=== PATIENT | female | born 1985 | race Caucasian/White ===

== ENCOUNTER 2018-06-21 22:50 | Observation (INO) | payer BC, OTHER ==
--- NOTE | 2018-06-22 00:11 | PDOC ---
History of Present Illness - General Chief Complaint: Palpitations Stated Complaint: CHEST PAIN Time Seen by Provider: 06/21/18 23:52 - History of Present Illness Initial Comments: 06/22/18 00:04 33 yo , at 35 wga at LMP (11/08), and no significant pmh who p/w palpitations. Patient reports acute onset of palpitations, lightheadedness, SOB , and elevated HR~200 beginning at 1000 AM today. Also endorses, intermittent non pleuritic chest tightness, beginning at 1000 AM. Palpitations occurring every 20-30 minutes, with no identifiable triggers or alleviators. + Nausea without vomiting. Denies h/o similar symptoms. No complications through .Patient arrives from [place]. Denies recent travels, immobilization, trauma/surgery, or flight. Patient denies BARRIENTOS, tinnitus, vision change, F/C, cough, PND, orthopnea, leg pain/swelling, wheezing, urinary complaints, hematuria, abdominal pain, BPR, diarrhea, constipation,vaginal bleeding/discharge/burning/itching, weakness, sensory changes. PMHx: as noted above. Denies h/o DVT/PE, or coagulopathy. ROS: as noted SHx: Denies Etoh,tobacco, IVDA Allergies:NKDA Past History - Past Medical History Allergies/Adverse Reactions: Allergies Allergy/AdvReac Type Severity Reaction Status Date / Time No Known Allergies Allergy Verified 06/21/18 22:56 COPD: No - Suicide/Smoking/Psychosocial Hx Smoking History: Never smoked Review of Systems - Review of Systems Comments:: 06/22/18 00:16 GENERAL/CONSTITUTIONAL: No fever or chills. No weakness. HEAD, EYES, EARS, NOSE AND THROAT: No change in vision. No ear pain or discharge. No sore throat. CARDIOVASCULAR: No shortness of breath RESPIRATORY: +Chest tightness and palpitations. No cough, wheezing, or hemoptysis. GASTROINTESTINAL: No nausea, vomiting, diarrhea or constipation. GENITOURINARY: No dysuria, frequency, or change in urination. MUSCULOSKELETAL: No joint or muscle swelling or pain. No neck or back pain. SKIN: No rash NEUROLOGIC: No headache, vertigo, loss of consciousness, or change in strength/ sensation. ENDOCRINE: No increased thirst. No abnormal weight change HEMATOLOGIC/LYMPHATIC: No anemia, easy bleeding, or history of blood clots. ALLERGIC/IMMUNOLOGIC: No hives or skin allergy. *Physical Exam - Vital Signs Last Vital Signs Temp Pulse Resp BP Pulse Ox 98.1 F 72 18 106/62 97 06/22/18 05:10 06/22/18 05:10 06/22/18 05:10 06/22/18 05:10 06/22/18 05:10 - Physical Exam Comments: 06/22/18 03:16 GENERAL: Awake, alert, and fully oriented, in no acute distress HEAD: No signs of trauma, normocephalic, atraumatic EYES: PERRLA, EOMI, sclera anicteric, conjunctiva clear ENT: Hearing grossly normal, nares patent, oropharynx clear without exudates. Moist mucosa NECK: Normal ROM, supple, no lymphadenopathy, JVD, or masses LUNGS: No distress, speaks full sentences, clear to auscultation bilaterally HEART: Irregular rate . Normal rhythm, normal S1 and S2, no murmurs, rubs or gallops, peripheral pulses normal and equal bilaterally. ABDOMEN: Soft, nontender, normoactive bowel sounds. No guarding, no rebound. No masses EXTREMITIES : Normal inspection, Normal range of motion, no edema. No clubbing or cyanosis. NEUROLOGICAL: Cranial nerves II through XII grossly intact. Normal speech, normal gait, no focal sensorimotor deficits. SKIN: Warm, Dry, normal turgor, no rashes or lesions noted ED Treatment Course - LABORATORY CBC & Chemistry Diagram: 06/22/18 02:07 06/22/18 02:07 - ADDITIONAL ORDERS Additional order review: Laboratory Results 06/22/18 06/22/18 06/22/18 02:07 02:07 02:07 PT with INR INR Sodium 139 Potassium 3.6 Chloride 109 H Carbon Dioxide 21 Anion Gap 9 BUN 10 Creatinine 0.6 Creat Clearance w eGFR > 60 Random Glucose 92 Calcium 8.7 Total Bilirubin 0.2 AST 21 ALT 22 Alkaline Phosphatase 141 H Creatine Kinase Troponin I Total Protein 6.4 Albumin 2.9 L TSH 2.21 Beta HCG, Quant Blood Type O POSITIVE Antibody Screen Negative 06/22/18 06/22/18 02:07 02:07 PT with INR 10.90 INR 0.92 Sodium Potassium Chloride Carbon Dioxide Anion Gap BUN Creatinine Creat Clearance w eGFR Random Glucose Calcium Total Bilirubin AST ALT Alkaline Phosphatase Creatine Kinase 126 Troponin I 0.18 H Total Protein Albumin TSH Beta HCG, Quant 41606.2 Blood Type Antibody Screen 06/22/18 02:07 RBC 3.74 MCV 92.3 MCHC 34.1 RDW 14.3 MPV 7.0 L Neutrophils % 78.7 Lymphocytes % 13.7 Monocytes % 6.4 Eosinophils % 0.8 Basophils % 0.4 - RADIOLOGY Radiology Studies Ordered: Category Date Time Status DUPLEX VASCUL US-2LEGS [US] Stat Ultrasound 06/22/18 00:41 Taken - Medications Given in the ED: ED Medications Discontinued Medications Generic Name Dose Route Start Last Admin Trade Name Freq PRN Reason Stop Dose Admin Sodium Chloride 1,000 mls @ 1,000 mls/hr 06/22/18 00:52 06/22/18 00:55 Normal Saline - IV 06/22/18 01:51 1,000 mls/hr ASDIR STA Administration Medical Decision Making - Medical Decision Making 06/22/18 00:11 33 yo , at 35 wga at LMP (11/08), and h/o psoriasis who p/w palpitations, lightheadedness, chest tightness. Patient arrives from LND. HR 120, vitals otherwise wnl, AF. Possible PE. Will assess for cardiac dysarrythmia, electrolyte abnml, metabolic derangements, acid base disturbances, infection.Denies vaginal bleeding, abdominal pain, F/C. Low suspicion threatened , placenta previa/abruptio. Ed Course: CBC, CMP, PT/INR,CARDIAC Pr.,D-DIMER EKG UA, HCG, URINE CX. DUPLEX VASC BL LE NS 06/22/18 00:58 EKG: Sinus Tachycardia, HR 120 with absent BREANNA, STD, or TWI. Normal interval duration and axis. 06/22/18 04:08 HC 06/22/18 04:09 CBC: Unremarkable Trop: 0.18 06/22/18 04:19 BL LE DUPLEX VASC : NEG CTAP: Neg for PE 06/22/18 07:39 [facility] Hospitalist does not accept patient over 20 wga. Called Procedure Manager senior oracle applications developer and left message ([phone]). Plan to admit for obs. 06/22/18 07:54 Patient signed out to day team. *DC/Admit/Observation/Transfer Diagnosis at time of Disposition: Palpitations, Elevated troponin, Tachycardia - Discharge Dispostion Decision to Admit order: Yes Decision to Admit order Date/Time: Decision to Admit Order Category Date Time Status Decision to Admit to Hospital Routine Admission 06/22/18 07:30 Ordered - Referrals - Patient Instructions - Post Discharge Activity
[2018-06-22] MEDS ORDERED: SODIUM CHLORIDE 1,000 ML IV STA (00:52)
--- NOTE | 2018-06-22 01:44 | PDOC ---
Attending Attestation - Resident Resident Name: Lanre Santanason - ED Attending Attestation I have performed the following: I have examined & evaluated the patient, The case was reviewed & discussed with the resident, I agree w/resident's findings & plan, Exceptions are as noted - HPI HPI: 33 yo currently 35 WGA with uncomplicated presents with abrupt onset palpitations, heart racing, SOB starting this evening. She states she was in her usual state of health leading up to it. She has been drinking water all day, eating normally. Denies any leg swelling, however, has been wearing compression stockings during her . - Physicial Exam PE: GENERAL: Awake, alert, and fully oriented, in no acute distress HEAD: No signs of trauma EYES: PERRLA, EOMI, sclera anicteric, conjunctiva clear ENT: Auricles normal inspection, hearing grossly normal, nares patent, oropharynx clear without exudates. Moist mucosa NECK: Normal ROM, supple, no lymphadenopathy, JVD, or masses LUNGS: Breath sounds equal, clear to auscultation bilaterally. No wheezes, and no crackles HEART: Tachycardic with regular rhythm, normal S1 and S2, no murmurs, rubs or gallops ABDOMEN: Soft, nontender, normoactive bowel sounds. No guarding, no rebound. No masses EXTREMITIES: Normal range of motion, no edema. No clubbing or cyanosis. No cords, erythema, or tenderness NEUROLOGICAL: Cranial nerves II through XII grossly intact. Normal speech, normal gait SKIN: Warm, Dry, normal turgor, no rashes or lesions noted. - Medical Decision Making Pt with palpitations, SOB, lower chest tightness. Will obtain BLE dopplers, labs including TSH. If all wnl, will obtain CTA to r/o PE. 06/22/18 04:56 Risks/benefits of CTA discussed with patient. Relatively low risk to fetus at this point, as she is 35 WGA. However, with her symptoms and elevated troponin, concern is high for PE. Patient agrees to CTA. 06/22/18 06:41 PE study with suboptimal contrast bolus, however, no large PEs identified. Will plan for observation in hospital based on tachycardia, elevated trop.
[2018-06-22 02:40] LABS: BASO % 0.4 % (0-2.0); EOS % 0.8 % (0-4.5); HEMATOCRIT 34.5 % (32.4-45.2); HEMOGLOBIN 11.7 GM/dL (10.7-15.3); LYMPH % 13.7 % (8-40); MCH 31.4 pg (25.7-33.7); MCHC 34.1 g/dl (32.0-36.0); MEAN CELL VOLUME 92.3 fl (80-96); MONO % 6.4 % (3.8-10.2); NEUT % 78.7 % (42.8-82.8); PLATELET COUNT 262 K/MM3 (134-434); RBC 3.74 M/mm3 (3.60-5.2); RDW 14.3 % (11.6-15.6)
[2018-06-22 02:52] LABS: INR 0.92 (0.83-1.09); PROTHROMBIN TIME (PATIENT) 10.9 SEC (9.7-13.0)
[2018-06-22 03:33] LABS: ALBUMIN 2.9 g/dl (3.4-5.0); ALK PHOS 141 U/L (45-117); ANION GAP 9 MMOL/L (8-16); BILIRUBIN,TOTAL 0.2 mg/dL (0.2-1); BLOOD UREA NITROGEN 10 mg/dL (7-18); CALCIUM 8.7 mg/dL (8.5-10.1); CHLORIDE 109 mmol/L (98-107); CO2 21 mmol/L (21-32); CREATININE 0.6 mg/dL (0.55-1.3); GLUCOSE,RANDOM 92 mg/dL (74-106); POTASSIUM 3.6 mmol/L (3.5-5.1); SGOT/AST 21 U/L (15-37); SGPT/ALT 22 U/L (13-61); SODIUM 139 mmol/L (136-145); TOT PROT 6.4 g/dl (6.4-8.2)
[2018-06-22 06:08] LABS: ACANTHOCYTES 0; ANISOCYTOSIS 0; HELMET CELLS 0; HOWELL-JOLLY BODIES 0; MACROCYTOSIS 0; OVALOCYTE 0; PLATELET ESTIMATE NORMAL; ROULEAU 0; SICKELED CELLS 0; TARGET CELLS 0; TEAR DROP CELLS 0; TOXIC GRANULATION 0
--- NOTE | 2018-06-22 10:42 | EKG ---
Test Reason : Blood Pressure : / mmHG Vent. Rate : 120 BPM Atrial Rate : 120 BPM P-R Int : 118 ms QRS Dur : 082 ms QT Int : 320 ms P-R-T Axes : 043 046 030 degrees QTc Int : 452 ms SINUS TACHYCARDIA OTHERWISE NORMAL ECG NO PREVIOUS ECGS AVAILABLE Confirmed by Ky Martin MD ([id number]) on 06/22/2018 10:42:15 AM Referred By: Confirmed By:Ky Martin MD
--- NOTE | 2018-06-22 12:33 | CON.CARD ---
Consult Consult Specialty:: cardiology Reason for Consultation:: palpitations ("HR > 200 bpm); lightheaded - History of Present Illness Chief Complaint: Pt A&Ox3; asymptomatic presently. History of Present Illness: 33 yo woman with PMHx , at 35 wga at LMP (11/08), and no significant pmh who presents with acute onset of palpitations, lightheadedness, SOB, and elevated HR~200 bpm, by her own count, beginning at 1000 AM today. Also endorses , intermittent non pleuritic chest tightness, beginning at 1000 AM. Palpitations occurring every 20-30 minutes, with no identifiable triggers or alleviators. + Nausea without vomiting. Denies h/o similar symptoms. No complications through .Patient arrives from [facility]. Denies recent travels , immobilization, trauma/surgery, or flight. She denies anxiety/panic. Pt works as an RN at [employer]. She does no formal exercise, but throughout the summer was [place]. No hx chest pain or dyspnea with exertion. One syncopal episode early in which occurred while in a hot and humid setting (and no palpitations). Denies excessive caffeine intake. - History Source History Provided By: Patient, Family Member, Medical Record Limitations to Obtaining History: No Limitations - Past Medical History ...: Yes - Past Surgical History Past Surgical History: Yes: None - Smoking History Smoking history: Never smoked - Social History Usual Living Arrangement: With Spouse Home Medications - Allergies Allergies/Adverse Reactions: Allergies Allergy/AdvReac Type Severity Reaction Status Date / Time No Known Allergies Allergy Verified 06/21/18 22:56 - Home Medications Home Medications: Ambulatory Orders NK [No Known Home Medication] 06/22/18 Family Disease History - Family Disease History Family Disease History: Heart Disease: Grandparent ([place] in his ?50s) Review of Systems - Review of Systems Constitutional: reports: No Symptoms Eyes: reports: No Symptoms, Recent Change in Vision Neck: reports: No Symptoms Cardiovascular: reports: Palpitations Vital Signs: Vital Signs Temperature 98.1 F 06/22/18 10:30 Pulse Rate 107 H 06/22/18 10:30 Respiratory Rate 16 06/22/18 10:30 Blood Pressure 126/66 06/22/18 10:30 O2 Sat by Pulse Oximetry (%) 98 06/22/18 10:30 Constitutional: Yes: Calm Eyes: Yes: WNL HENT: Yes: WNL Neck: Yes: WNL Respiratory: Yes: WNL Gastrointestinal: Yes: WNL Renal/: No: Anuria Cardiovascular: Yes: Regular Rate and Rhythm JVD: No Carotid Bruit: No PMI: Non-Displaced Heart Sounds: Yes: S1, S2 Murmur: Yes: Systolic Murmur, Grade 1 Musculoskeletal: Yes: WNL Extremities: Yes: WNL Edema: No Peripheral Pulses WNL: Yes Integumentary: Yes: WNL Neurological: Yes: WNL Psychiatric: Yes: WNL, Alert, Oriented - Other Data Labs, Other Data: CBC, BMP 06/22/18 02:07 06/22/18 02:07 INR, PTT INR 0.92 (0.83-1.09) 06/22/18 02:07 Troponin, BNP 06/22/18 06/22/18 02:07 08:36 Troponin I 0.18 H 0.08 H Troponin, BNP 06/22/18 06/22/18 02:07 08:36 Troponin I 0.18 H 0.08 H Abnormal Lab Results 06/22/18 06/22/18 06/22/18 02:07 02:07 02:07 MPV 7.0 L D-Dimer Chloride 109 H Alkaline Phosphatase 141 H Troponin I 0.18 H Albumin 2.9 L 06/22/18 06/22/18 08:36 09:44 MPV D-Dimer 2161 H Chloride Alkaline Phosphatase Troponin I 0.08 H Albumin Imaging - Results Ultrasound: Pending (ECHO) EKG: Image Reviewed (sinus tachycarida; otherwise, normal EKG) Problem List - Problems (1) Elevated troponin Assessment/Plan: TNI 0.18-->0.08 six hours later; CK WNL. Likely secondary to sustained episodes of tachycardia. Code(s): R74.8 - ABNORMAL LEVELS OF OTHER SERUM ENZYMES (2) Palpitations Code(s): R00.2 - PALPITATIONS (3) Tachycardia Assessment/Plan: The palpitations and tachycardia described are most likely due to PSVT. Hx single episode of syncope early in . F/u ECHO for LVEF, chamber sizes. Telemetry. Keep electrolytes WNL TSH WNL CTA negative for PE. Confer with Ob-sewer hand for the safest AV conduction shayy to use (metoprolol would be preferred, though propanolol, diltiazem, or digoxin would be other considerations). Pt is at late stage of . No objection to transfer to hospital center where all methods of rapid reaction for both mother and baby in event of further arrhythmias are available. An alternative, if medication is felt too risky, would be to teach pt maneuvers to break SVT, e.gl carotid artery massage (avoid traditional Valsalva maneuver). Conferred with rivet hammer machine operator, Dr. Rodolfo Ashby. Pt may be followed up with him via transfer to [facility], or once discharged, as outpatient for loop recorder monitoring. Code(s): R00.0 - TACHYCARDIA, UNSPECIFIED
--- NOTE | 2018-06-22 12:33 | HP ---
CHIEF COMPLAINT: PCP:Not on Staff STEWARDESS SUPERVISOR:[employer] HISTORY OF PRESENT ILLNESS: 33F with PMH of psoriasis presents to the ER with a chief complaint of palpitations. The patient is a nurse at [employer]. She states she was in her usual state of health until around 2130 last night. She states she all of a sudden felt some kind of "landin" come upon her and then she got diaphoretic, nauseated, short of breath, and then started having palpitations chest tightness, and pressure. She states she was able to feel and hear her heart beating in her ears and head. She states she took her pulse rate and it was around 200. The episode lasted for a few minutes. Upon arrival to the ER her HR was in the 130s-140s but has since been around 90-100 BPM. She denies vomiting fever chills chest pain urinary of GI symptoms. She denies lower extremity edema pain or cramping and wears compression stockings. She endorses a few months ago, in her first trimester, she had what she describes as a pre- syncopal event. She was on the subway platform waiting for the subway for a long while and started to get hot. Everything got "hazy" and she felt like she was going to pass out but she didn't. She doesn't remember if she went into an air conditioned car or what happened after that. She denies substance abuse. She denies this happening before. She denies a family history of arrhythmias. EKG done in the ER shows sinus tachycardia. Troponins trended x2 so far which showed 0.18 then 0.08. She had an elevated D-dimer and a CTA was negative for PE. She also had US duplex and was negative for DVT. Recent Travel:Denies PAST MEDICAL HISTORY:psoriasis PAST SURGICAL HISTORY:Denies Social History: Smoking:Denies Alcohol:Denies Drugs: Denies Family History:grabdfather of [place] in 50s grandfather had stroke Allergies No Known Allergies Allergy (Verified 06/21/18 22:56) HOME MEDICATIONS: Home Medications Medication Instructions Recorded NK [No Known Home Medication] 06/22/18 REVIEW OF SYSTEMS CONSTITUTIONAL: Absent: fever, chills, diaphoresis, generalized weakness, malaise, loss of appetite, weight change HEENT: Absent: rhinorrhea, nasal congestion, throat pain, throat swelling, difficulty swallowing, mouth swelling, ear pain, eye pain, visual changes CARDIOVASCULAR: Absent: chest pain, syncope, lightheadedness, peripheral edema Present: palpitations, irregular heart rate, chest tightness, chest pressure RESPIRATORY: Absent: cough, dyspnea with exertion, orthopnea, wheezing, stridor, hemoptysis Present: shortness of breath GASTROINTESTINAL: Absent: abdominal pain, abdominal distension, vomiting, diarrhea, constipation, melena, hematochezia Present:shortness of breath GENITOURINARY: Absent: dysuria, frequency, urgency, hesitancy, hematuria, flank pain, genital pain MUSCULOSKELETAL: Absent: myalgia, arthralgia, joint swelling, back pain, neck pain SKIN: Absent: rash, itching, pallor HEMATOLOGIC/IMMUNOLOGIC: Absent: easy bleeding, easy bruising, lymphadenopathy, frequent infections ENDOCRINE: Absent: unexplained weight gain, unexplained weight loss, heat intolerance, cold intolerance NEUROLOGIC: Absent: headache, focal weakness or paresthesias, dizziness, unsteady gait, seizure, mental status changes, bladder or bowel incontinence PSYCHIATRIC: Absent: anxiety, depression, suicidal or homicidal ideation, hallucinations. PHYSICAL EXAMINATION Vital Signs - 24 hr 06/21/18 06/22/18 06/22/18 22:52 00:01 05:10 Temperature 98 F 98.8 F 98.1 F Pulse Rate 120 H Pulse Rate [ 135 H Left Brachial] Pulse Rate [ 72 Left Radial] Respiratory 18 18 18 Rate Blood Pressure 110/66 Blood Pressure 106/62 [Left Arm] Blood Pressure 106/69 [Left Upper Arm ] O2 Sat by Pulse 97 97 Oximetry (%) 06/22/18 10:30 Temperature 98.1 F Pulse Rate Pulse Rate [ Left Brachial] Pulse Rate [ 107 H Left Radial] Respiratory 16 Rate Blood Pressure Blood Pressure 126/66 [Left Arm] Blood Pressure [Left Upper Arm ] O2 Sat by Pulse 98 Oximetry (%) GENERAL: Awake, alert, and fully oriented, in no acute distress. HEAD: Normal with no signs of trauma. EYES: Pupils equal, round and reactive to light, extraocular movements intact EARS, NOSE, THROAT: Moist mucous membranes. NECK: Normal range of motion, supple without JVD LUNGS: Breath sounds equal, clear to auscultation bilaterally. No wheezes, and no crackles. No accessory muscle use. HEART: Regular rate and rhythm, normal S1 and S2 without murmur, rub or gallop. ABDOMEN: Soft, nontender, not distended , gravid uterus MUSCULOSKELETAL: Normal range of motion at all joints. No bony deformities or tenderness. No CVA tenderness. UPPER EXTREMITIES: 2+ pulses, warm, well-perfused. No cyanosis. No clubbing. No peripheral edema. LOWER EXTREMITIES: 2+ pulses, warm, well-perfused. No calf tenderness. No peripheral edema. NEUROLOGICAL: Cranial nerves II-XII intact. Normal speech. Normal gait. PSYCHIATRIC: Cooperative. Good eye contact. Appropriate mood and affect. SKIN: Warm, dry, normal turgor, psoriasis on scalp, forehead, arms. Laboratory Results - last 24 hr 06/22/18 06/22/18 06/22/18 02:07 02:07 02:07 WBC 10.0 RBC 3.74 Hgb 11.7 Hct 34.5 MCV 92.3 MCH 31.4 MCHC 34.1 RDW 14.3 Plt Count 262 MPV 7.0 L Absolute Neuts (auto) 7.8 Neutrophils % 78.7 Neutrophils % (Manual) 71.6 Band Neutrophils % 5.3 Lymphocytes % 13.7 Lymphocytes % (Manual) 14.7 Monocytes % 6.4 Monocytes % (Manual) 5 Eosinophils % 0.8 Eosinophils % (Manual) 3.1 Basophils % 0.4 Basophils % (Manual) 0.0 Myelocytes % (Man) 0 Promyelocytes % (Man) 0 Blast Cells % (Manual) 0 Nucleated RBC % 0 Metamyelocytes 0 Hypochromia 0 Toxic Granulation 0 Dohle Bodies 0 Platelet Estimate Normal Polychromasia 0 Poikilocytosis 0 Basophilic Stippling 0 Anisocytosis 0 Microcytosis 0 Macrocytosis 0 Spherocytes 0 Sickle Cells 0 Target Cells 0 Tear Drop Cells 0 Ovalocytes 0 Stomatocytes 0 Helmet Cells 0 [place] Bodies 0 [place] Rings 0 Epi Cells 0 Acanthocytes (Spur) 0 Rouleaux 0 Fragmented RBCs 0 Schistocytes 0 PT with INR 10.90 INR 0.92 D-Dimer Sodium Potassium Chloride Carbon Dioxide Anion Gap BUN Creatinine Creat Clearance w eGFR Random Glucose Calcium Total Bilirubin AST ALT Alkaline Phosphatase Creatine Kinase 126 Troponin I 0.18 H Total Protein Albumin TSH Beta HCG, Quant 14399.2 Blood Type Antibody Screen 06/22/18 06/22/18 06/22/18 02:07 02:07 02:07 WBC RBC Hgb Hct MCV MCH MCHC RDW Plt Count MPV Absolute Neuts (auto) Neutrophils % Neutrophils % (Manual) Band Neutrophils % Lymphocytes % Lymphocytes % (Manual) Monocytes % Monocytes % (Manual) Eosinophils % Eosinophils % (Manual) Basophils % Basophils % (Manual) Myelocytes % (Man) Promyelocytes % (Man) Blast Cells % (Manual) Nucleated RBC % Metamyelocytes Hypochromia Toxic Granulation Dohle Bodies Platelet Estimate Polychromasia Poikilocytosis Basophilic Stippling Anisocytosis Microcytosis Macrocytosis Spherocytes Sickle Cells Target Cells Tear Drop Cells Ovalocytes Stomatocytes Helmet Cells [place] Bodies [place] Rings Epi Cells Acanthocytes (Spur) Rouleaux Fragmented RBCs Schistocytes PT with INR INR D-Dimer Sodium 139 Potassium 3.6 Chloride 109 H Carbon Dioxide 21 Anion Gap 9 BUN 10 Creatinine 0.6 Creat Clearance w eGFR > 60 Random Glucose 92 Calcium 8.7 Total Bilirubin 0.2 AST 21 ALT 22 Alkaline Phosphatase 141 H Creatine Kinase Troponin I Total Protein 6.4 Albumin 2.9 L TSH 2.21 Beta HCG, Quant Blood Type O POSITIVE Antibody Screen Negative 06/22/18 06/22/18 06/22/18 08:36 09:44 09:44 WBC RBC Hgb Hct MCV MCH MCHC RDW Plt Count MPV Absolute Neuts (auto) Neutrophils % Neutrophils % (Manual) Band Neutrophils % Lymphocytes % Lymphocytes % (Manual) Monocytes % Monocytes % (Manual) Eosinophils % Eosinophils % (Manual) Basophils % Basophils % (Manual) Myelocytes % (Man) Promyelocytes % (Man) Blast Cells % (Manual) Nucleated RBC % Metamyelocytes Hypochromia Toxic Granulation Dohle Bodies Platelet Estimate Polychromasia Poikilocytosis Basophilic Stippling Anisocytosis Microcytosis Macrocytosis Spherocytes Sickle Cells Target Cells Tear Drop Cells Ovalocytes Stomatocytes Helmet Cells [place] Bodies [place] Rings [place] Cells Acanthocytes (Spur) Rouleaux Fragmented RBCs Schistocytes PT with INR INR D-Dimer 2161 H Sodium Potassium Chloride Carbon Dioxide Anion Gap BUN Creatinine Creat Clearance w eGFR Random Glucose Calcium Total Bilirubin AST ALT Alkaline Phosphatase Creatine Kinase Troponin I 0.08 H Total Protein Albumin TSH Beta HCG, Quant Blood Type O POSITIVE Antibody Screen EKG: sinus tachycardia CTA chest: No PE Duplex US bilateral LE: negative for DVT ASSESSMENT/PLAN: 33F with no significant PMH presents to the ED with palpitations. Tachycardia:given tacycardia with troponinemia concern that there was an episode which led to increased demand High on the differential is SVT vs other arrhythmias Will place on observation for telemetry monitoring add on CPK to 830am labs trend troponin- already trending down Lipid profile TSH WNL Echo If telemetry monitoring does not capture any abnormalities will likely need to refer for outpatient monitoring (cardiology to refer to EP Dr. Ashby) Will discuss with patient cardiology and STEWARDESS SUPERVISOR about starting an AV node blocking agent such as beta-shayy CCB or digoxin. after discussion with cardiology metoprolol preferred but others for consideration are diltizem or propanolol consider ablation if needed as outpatient depending on results of telemetry or loop etc Possible treatment options discussed with patient and partner at bedside FEn: No IVF No electrolyte issues regular diet PPx: SCDs/early ambulation no GI PPx indicated early ambulation to avoid deconditioning Case discussed with Dr. Erickson and Dr. Xavier Visit type - Emergency Visit Emergency Visit: Yes ED Registration Date: 06/22/18 Care time: The patient presented to the Emergency Department on the above date and was hospitalized for further evaluation of their emergent condition. - New Patient This patient is new to me today: Yes Date on this admission: 06/22/18 - Critical Care Critical Care patient: No
[2018-06-22 14:30] LABS: CHOLESTEROL 214 mg/dL (50-200); HDL CHOLESTEROL 66 mg/dL (40-60); TRIGLYCERIDES 445 mg/dL (0-150)
--- NOTE | 2018-06-22 15:47 | PN ---
Teaching Attending Note Name of Resident: Yosef Jj ATTENDING PHYSICIAN STATEMENT I saw and evaluated the patient. I reviewed the resident's note and discussed the case with the resident. I agree with the resident's findings and plan as documented. SUBJECTIVE: This is a 33 year old woman, who is 35 weeks , with a history of psoriasis who comes to the ED complaining of palpitations. Around 9: 30 pm yesterday she suddenly became nauseous, diaphoretic, and SOB. She developed palpitations and chest tightness. She felt her pulse was around 200. Her symptoms resolve without intervention, but she remained tachycardic when she arrived in the ED. OBJECTIVE: Vital Signs Period Temp Pulse Resp BP Sys/Hoffman Pulse Ox Last 24 Hr 98 F-98.8 F 72-135 16-18 106-126/57-69 97-98 HEART: S1S2, RRR LUNGS: Clear ABDOMEN: Soft, non-tender, normal BS EXTREMITIES: No edema Laboratory Tests 06/22/18 06/22/18 06/22/18 02:07 02:07 02:07 WBC 10.0 RBC 3.74 Hgb 11.7 Hct 34.5 MCV 92.3 MCH 31.4 MCHC 34.1 RDW 14.3 Plt Count 262 MPV 7.0 L Absolute Neuts (auto) 7.8 Neutrophils % 78.7 Neutrophils % (Manual) 71.6 Band Neutrophils % 5.3 Lymphocytes % 13.7 Lymphocytes % (Manual) 14.7 Monocytes % 6.4 Monocytes % (Manual) 5 Eosinophils % 0.8 Eosinophils % (Manual) 3.1 Basophils % 0.4 Basophils % (Manual) 0.0 Myelocytes % (Man) 0 Promyelocytes % (Man) 0 Blast Cells % (Manual) 0 Nucleated RBC % 0 Metamyelocytes 0 Hypochromia 0 Toxic Granulation 0 Dohle Bodies 0 Platelet Estimate Normal Polychromasia 0 Poikilocytosis 0 Basophilic Stippling 0 Anisocytosis 0 Microcytosis 0 Macrocytosis 0 Spherocytes 0 Sickle Cells 0 Target Cells 0 Tear Drop Cells 0 Ovalocytes 0 Stomatocytes 0 Helmet Cells 0 [place]ett-Glide Bodies 0 [place] Rings 0 Exline Cells 0 Acanthocytes (Spur) 0 Rouleaux 0 Fragmented RBCs 0 Schistocytes 0 PT with INR 10.90 INR 0.92 D-Dimer Sodium Potassium Chloride Carbon Dioxide Anion Gap BUN Creatinine Creat Clearance w eGFR Random Glucose Calcium Total Bilirubin AST ALT Alkaline Phosphatase Creatine Kinase 126 Troponin I 0.18 H Total Protein Albumin Triglycerides Cholesterol Total LDL Cholesterol HDL Cholesterol TSH Beta HCG, Quant 19199.2 Blood Type Antibody Screen 06/22/18 06/22/18 06/22/18 02:07 02:07 02:07 WBC RBC Hgb Hct MCV MCH MCHC RDW Plt Count MPV Absolute Neuts (auto) Neutrophils % Neutrophils % (Manual) Band Neutrophils % Lymphocytes % Lymphocytes % (Manual) Monocytes % Monocytes % (Manual) Eosinophils % Eosinophils % (Manual) Basophils % Basophils % (Manual) Myelocytes % (Man) Promyelocytes % (Man) Blast Cells % (Manual) Nucleated RBC % Metamyelocytes Hypochromia Toxic Granulation Dohle Bodies Platelet Estimate Polychromasia Poikilocytosis Basophilic Stippling Anisocytosis Microcytosis Macrocytosis Spherocytes Sickle Cells Target Cells Tear Drop Cells Ovalocytes Stomatocytes Helmet Cells [place]ett-Glide Bodies [place] Rings Exline Cells Acanthocytes (Spur) Rouleaux Fragmented RBCs Schistocytes PT with INR INR D-Dimer Sodium 139 Potassium 3.6 Chloride 109 H Carbon Dioxide 21 Anion Gap 9 BUN 10 Creatinine 0.6 Creat Clearance w eGFR > 60 Random Glucose 92 Calcium 8.7 Total Bilirubin 0.2 AST 21 ALT 22 Alkaline Phosphatase 141 H Creatine Kinase Troponin I Total Protein 6.4 Albumin 2.9 L Triglycerides 445 H Cholesterol 214 H Total LDL Cholesterol 99 HDL Cholesterol 66 H TSH 2.21 Beta HCG, Quant Blood Type O POSITIVE Antibody Screen Negative 06/22/18 06/22/18 06/22/18 08:36 09:44 09:44 WBC RBC Hgb Hct MCV MCH MCHC RDW Plt Count MPV Absolute Neuts (auto) Neutrophils % Neutrophils % (Manual) Band Neutrophils % Lymphocytes % Lymphocytes % (Manual) Monocytes % Monocytes % (Manual) Eosinophils % Eosinophils % (Manual) Basophils % Basophils % (Manual) Myelocytes % (Man) Promyelocytes % (Man) Blast Cells % (Manual) Nucleated RBC % Metamyelocytes Hypochromia Toxic Granulation Dohle Bodies Platelet Estimate Polychromasia Poikilocytosis Basophilic Stippling Anisocytosis Microcytosis Macrocytosis Spherocytes Sickle Cells Target Cells Tear Drop Cells Ovalocytes Stomatocytes Helmet Cells [place]unkett-Glide Bodies [place] Rings Epi Cells Acanthocytes (Spur) Rouleaux Fragmented RBCs Schistocytes PT with INR INR D-Dimer 2161 H Sodium Potassium Chloride Carbon Dioxide Anion Gap BUN Creatinine Creat Clearance w eGFR Random Glucose Calcium Total Bilirubin AST ALT Alkaline Phosphatase Creatine Kinase 102 Troponin I 0.08 H Total Protein Albumin Triglycerides Cholesterol Total LDL Cholesterol HDL Cholesterol TSH Beta HCG, Quant Blood Type O POSITIVE Antibody Screen Home Medications Medication Instructions Recorded NK [No Known Home Medication] 06/22/18 ASSESSMENT AND PLAN: This is a 33 year old woman, who is 35 weeks , with a history of psoriasis who presented to the ED with palpitations, diaphoresis, SOB, nausea, and chest tightness. 1. Palpitations - Sinus tachycardia noted in ED - Troponin 0.18 -> 0.08 - TSH normal - No evidence of PE on CTA - Observe on telemetry - Start Lopressor if ok with loss prevention supervisor - Echocardiogram - Cardiology consult 2. - supervisor research kennel consult
--- NOTE | 2018-06-22 15:49 | ECHO ---
Name: FANY RIOJAS Exam:Adult Echocardiogram Study Date: 06/22/2018 01:52 PM Age: 33 yrs Reason For Study: TACHYCARDIA Height: 63 in Weight: 151 lb BSA: 1.7 m2 MMode/2D Measurements & Calculations IVSd: 0.69 cm Ao root diam: 2.7 cm LVIDd: 4.7 cm LA dimension: 3.4 cm LVIDs: 3.2 cm LVPWd: 0.81 cm EDV(Teich): 101.8 ml LVOT diam: 1.9 cm ESV(Teich): 40.7 ml RV S Elijah: 11.2 cm/sec Doppler Measurements & Calculations MV E max elijah: 45.6 cm/sec Med Peak E' Elijah: 10.0 cm/sec MV A max elijah: 42.7 cm/sec Med E/e': 4.6 MV E/A: 1.1 Procedure A complete two-dimensional transthoracic echocardiogram was performed (2D, M-mode, Doppler and color flow Doppler). Left Ventricle The left ventricular size, thickness and function are normal. Ejection Fraction = 65%. Left Ventricul ar Filling pattern is normal for age. The left ventricular wall motion is normal. Right Ventricle The right ventricle is normal in size and function. Atria Normal left and right atrial size and function. Mitral Valve The mitral valve is normal in structure and function. There is trace mitral regurgitation. Tricuspid Valve The tricuspid valve is normal in structure and function. There is trace tricuspid regurgitation. Ther e was insufficient TR detected to calculate RV systolic pressure. Aortic Valve The aortic valve is normal in structure and function. Pulmonic Valve The pulmonic valve is normal in structure and function. Great Vessels The aortic root is normal size. Pericardium/Pleura There is no pericardial effusion. There is no pleural effusion. Interpretation Summary The left ventricular size, thickness and function are normal Ejection Fraction = 65%. There is trace mitral regurgitation. There is trace tricuspid regurgitation. There was insufficient TR detected to calculate RV systolic pressure. MD Ky Martin 06/22/2018 03:48 PM
--- NOTE | 2018-06-22 16:02 | CON.OBG ---
Consult Consult Specialty:: obgyn Reason for Consultation:: chest pain - History of Present Illness Chief Complaint: chest pain History of Present Illness: pt was seen an evaluated in labor and delivery. She was cleared obstetrically. [place] the city[place]. Pt can be admitted to medicine and consulted as need be. She may use metoprolol as it is a cat c medication. - History Source History Provided By: Patient Limitations to Obtaining History: No Limitations - Past Medical History Heme/Onc: No: Anemia, B12 Deficiency, Bleeding Disorder, Cancer, Current Chemotherapy, Current Radiation Therapy, Hemochromatosis, Hypercoaguable State, Myeloproliferative Synd, Sickle Cell Disease, Sickle Cell Trait, Thrombocytopenia, Other Infectious Disease: No: AIDS, C-Diff, Herpes Zoster, HIV, MRSA, STD's, Tuberculosis, VREF, Other Psych: No: Addictions, Anxiety, Bipolar, Depression, Panic, Psychosis, Schizophrenia, Other Musculoskeletal: No: Bursitis, Chronic low back pain, Hemiparesis, Hemiplegia, Osteoarthritis, Paraplegia, Other Rheumatology: No: Fibromyalgia, Gout, Lupus, Rheumatoid Arthritis, Sarcoidosis, Vasculitis, Other ENT: No: Allergic Rhinitis, Sinusitis, Other Endocrine: No: Fulton's Disease, Cowden's Disease, Diabetes Insipidus, Diabetes Mellitus, Hyperparathyroidism, Hyperthyroidism, Hypothyroidism, Osteopenia, SIADH, Other - Past Surgical History Past Surgical History: No: None, AAA Repair, AICD, Amputation, Appendectomy, Arthrosocopy, AV Fistula/Graft, Bariatric Surgery, Breast Biopsy, Bypass, CABG, Carotid Endarterectomy, Cataract Removal, Cholecystectomy, Colectomy, Colonoscopy, Colostomy, Craniotomy, , Cystectomy, Hernia Repair, Hysterectomy, Ileal Conduit, Ileosotomy, Joint Replacement, Kidney Transplant, Laminectomy, Liver Transplant, Mastectomy, Nephrectomy, Oopherectomy, Orchiectomy, Permanent Pacemaker, Prostatectomy, Splenectomy, Stent, Thoracotomy , TURP, Tonsillectomy, Tubal Ligation, Upper Endoscopy, Valve Replacement, Vasectomy, Vein Stripping/Ligation - Alcohol/Substance Use History of Substance Use: denies: None, Cocaine, Heroin, Marijuana, Prescription , Tranquilizers - Smoking History Smoking history: Never smoked Home Medications - Allergies Allergies/Adverse Reactions: Allergies Allergy/AdvReac Type Severity Reaction Status Date / Time No Known Allergies Allergy Verified 06/21/18 22:56 - Home Medications Home Medications: Ambulatory Orders NK [No Known Home Medication] 06/22/18 Family Disease History - Family Disease History Family Disease History: Heart Disease: Grandparent ([place] in his ?50s) Physical Exam-ICE CREAM DIPPER Vital Signs: Vital Signs Temperature 98.3 F 06/22/18 15:14 Pulse Rate 95 H 06/22/18 15:14 Respiratory Rate 18 06/22/18 15:14 Blood Pressure 111/57 L 06/22/18 15:14 O2 Sat by Pulse Oximetry (%) 98 06/22/18 15:14 Labs: CBC, BMP 06/22/18 02:07 06/22/18 02:07 Assessment/Plan 35 weeks ob--obstetrically cleared. She may use metoprolol since it is a cat c class and its alternates being that it would be the same class.
[2018-06-23 03:05] VITALS: BMI 27.1
[2018-06-23 06:32] LABS: HEMATOCRIT 30.5 % (32.4-45.2); HEMOGLOBIN 10.2 GM/dL (10.7-15.3); MCH 30.9 pg (25.7-33.7); MCHC 33.5 g/dl (32.0-36.0); MEAN CELL VOLUME 92.2 fl (80-96); MEAN PLT VOLUME 6.9 fl (7.5-11.1); PLATELET COUNT 199 K/MM3 (134-434); RBC 3.31 M/mm3 (3.60-5.2); RDW 14.2 % (11.6-15.6); WHITE BLOOD COUNT 7.9 K/mm3 (4.0-10.0)
[2018-06-23 06:58] LABS: ALBUMIN 2.6 g/dl (3.4-5.0); ALK PHOS 127 U/L (45-117); ANION GAP 9 MMOL/L (8-16); BILIRUBIN,TOTAL 0.4 mg/dL (0.2-1); BLOOD UREA NITROGEN 5 mg/dL (7-18); CALCIUM 7.9 mg/dL (8.5-10.1); CHLORIDE 110 mmol/L (98-107); CO2 19 mmol/L (21-32); CREATININE 0.3 mg/dL (0.55-1.3); GLUCOSE,RANDOM 73 mg/dL (74-106); MAGNESIUM 2.1 mg/dL (1.8-2.4); PHOSPHOROUS 3.9 mg/dL (2.5-4.9); POTASSIUM 3.5 mmol/L (3.5-5.1); SGOT/AST 14 U/L (15-37); SGPT/ALT 19 U/L (13-61); SODIUM 139 mmol/L (136-145); TOT PROT 5.6 g/dl (6.4-8.2)
--- NOTE | 2018-06-23 09:48 | PN ---
Progress Note, Physician History of Present Illness: 33 yo woman with PMHx , at 35 wga at LMP (11/08), and no significant pmh who presents with acute onset of palpitations, lightheadedness, SOB, and elevated HR~200 bpm, by her own count, beginning at 1000 AM today. Also endorses , intermittent non pleuritic chest tightness, beginning at 1000 AM. Palpitations occurring every 20-30 minutes, with no identifiable triggers or alleviators. + Nausea without vomiting. Denies h/o similar symptoms. No complications through .Patient arrives from [facility]. Denies recent travels , immobilization, trauma/surgery, or flight. She denies anxiety/panic. Pt works as an RN at [employer]. She does no formal exercise, but throughout the summer [place]. No hx chest pain or dyspnea with exertion. One syncopal episode early in which occurred while in a hot and humid setting (and no palpitations). Denies excessive caffeine intake. - Objective Vital Signs: Vital Signs Temperature 98.2 F 06/23/18 05:32 Pulse Rate 88 06/23/18 05:32 Respiratory Rate 20 06/23/18 05:32 Blood Pressure 101/57 L 06/23/18 05:32 O2 Sat by Pulse Oximetry (%) 98 06/23/18 03:19 Eyes: Yes: WNL, Conjunctiva Clear, EOM Intact HENT: Yes: WNL, Atraumatic, Normocephalic Neck: Yes: WNL, Supple, Trachea Midline Cardiovascular: Yes: WNL, Regular Rate and Rhythm Respiratory: Yes: WNL, Regular, CTA Bilaterally Gastrointestinal: Yes: WNL, Normal Bowel Sounds Genitourinary: Yes: WNL Musculoskeletal: Yes: WNL Extremities: Yes: WNL Edema: No Integumentary: Yes: WNL Neurological: Yes: WNL, Alert, Oriented ...Motor Strength: WNL Psychiatric: Yes: WNL Labs: CBC, BMP 06/23/18 06:00 06/23/18 06:00 INR, PTT INR 0.92 (0.83-1.09) 06/22/18 02:07 Assessment/Plan - Problems (1) Elevated troponin Assessment/Plan: TNI 0.18-->0.08 six hours later; CK WNL. Likely secondary to sustained episodes of tachycardia. Code(s): R74.8 - ABNORMAL LEVELS OF OTHER SERUM ENZYMES (2) Palpitations Code(s): R00.2 - PALPITATIONS (3) Tachycardia Assessment/Plan: The palpitations and tachycardia described are most likely due to PSVT. Hx single episode of syncope early in . F/u ECHO for LVEF, chamber sizes. Telemetry negative for arrhythmias last night . Keep electrolytes WNL TSH WNL CTA negative for PE. Confer with Ob-phytopathologist for the safest AV conduction shayy to use (metoprolol would be preferred, though propanolol, diltiazem, or digoxin would be other considerations). Pt is at late stage of . No objection to transfer to hospital center where all methods of rapid reaction for both mother and baby in event of further arrhythmias are available. An alternative, if medication is felt too risky, would be to teach pt maneuvers to break SVT, e.gl carotid artery massage (avoid traditional Valsalva maneuver). Dr. Stone conferred with multimedia production assistant, Dr. Rodolfo Ashby. Pt may be followed up with him via transfer to [facility],
--- NOTE | 2018-06-23 13:08 | PN ---
Physical Exam: SUBJECTIVE: Patient seen and examined OBJECTIVE: Vital Signs Period Temp Pulse Resp BP Sys/Hoffman Pulse Ox Last 24 Hr 98.0 F-98.7 F 88-111 16-20 101-114/47-79 97-99 GENERAL: The patient is awake, alert, and fully oriented, in no acute distress. HEAD: Normal with no signs of trauma. EYES: PERRL, extraocular movements intact, sclera anicteric, conjunctiva clear. No ptosis. ENT: Ears normal, nares patent, oropharynx clear without exudates, moist mucous membranes. NECK: Trachea midline, full range of motion, supple. LUNGS: Breath sounds equal, clear to auscultation bilaterally, no wheezes, no crackles, no accessory muscle use. HEART: Regular rate and rhythm, S1, S2 without murmur, rub or gallop. ABDOMEN: Soft, nontender, nondistended, normoactive bowel sounds, no guarding, no rebound, no hepatosplenomegaly, no masses. EXTREMITIES: 2+ pulses, warm, well-perfused, no edema. NEUROLOGICAL: Cranial nerves II through XII grossly intact. Normal speech, gait not observed. PSYCH: Normal mood, normal affect. SKIN: Warm, dry, normal turgor, no rashes or lesions noted Laboratory Results - last 24 hr 06/22/18 06/22/18 06/23/18 02:07 08:36 06:00 WBC 7.9 RBC 3.31 L Hgb 10.2 L Hct 30.5 L MCV 92.2 MCH 30.9 MCHC 33.5 RDW 14.2 Plt Count 199 D MPV 6.9 L Sodium 139 Potassium 3.6 Chloride 109 H Carbon Dioxide 21 Anion Gap 9 BUN 10 Creatinine 0.6 Creat Clearance w eGFR > 60 Random Glucose 92 Calcium 8.7 Phosphorus Magnesium Total Bilirubin 0.2 AST 21 ALT 22 Alkaline Phosphatase 141 H Creatine Kinase 102 Troponin I 0.08 H Total Protein 6.4 Albumin 2.9 L Triglycerides 445 H Cholesterol 214 H Total LDL Cholesterol 99 HDL Cholesterol 66 H 06/23/18 06:00 WBC RBC Hgb Hct MCV MCH MCHC RDW Plt Count MPV Sodium 139 Potassium 3.5 Chloride 110 H Carbon Dioxide 19 L Anion Gap 9 BUN 5 L Creatinine 0.3 L Creat Clearance w eGFR > 60 Random Glucose 73 L Calcium 7.9 L Phosphorus 3.9 Magnesium 2.1 Total Bilirubin 0.4 AST 14 L ALT 19 Alkaline Phosphatase 127 H Creatine Kinase Troponin I Total Protein 5.6 L Albumin 2.6 L Triglycerides Cholesterol Total LDL Cholesterol HDL Cholesterol ASSESSMENT/PLAN:
--- NOTE | 2018-06-23 13:45 | EKG ---
Test Reason : Blood Pressure : / mmHG Vent. Rate : 124 BPM Atrial Rate : 124 BPM P-R Int : 124 ms QRS Dur : 076 ms QT Int : 324 ms P-R-T Axes : 047 034 028 degrees QTc Int : 465 ms SINUS TACHYCARDIA OTHERWISE NORMAL ECG WHEN COMPARED WITH ECG OF 22-JUN-2018 00:43, NO SIGNIFICANT CHANGE WAS FOUND Confirmed by JARET KESSLER MD ([id number]) on 06/23/2018 1:45:21 PM Referred By: VICTORIA MARTELL DR Confirmed By:JARET KESSLER MD
[2018-06-23 15:02] VITALS: BP 106/65; PULSE 96; TEMP 98.8
--- NOTE | 2018-06-23 16:48 | DS ---
Physical Exam: SUBJECTIVE: Patient seen and examined. She has no complaints. She has been ambulating without difficulty. OBJECTIVE: Vital Signs Period Temp Pulse Resp BP Sys/Hoffman Pulse Ox Last 24 Hr 98.0 F-98.8 F 88-111 16-20 101-114/47-79 97-99 PHYSICAL EXAM GENERAL: The patient is awake, alert, and fully oriented, in no acute distress. LUNGS: Breath sounds equal, clear to auscultation bilaterally, no wheezes, no crackles, no accessory muscle use. HEART: Regular rhythm, tachycardic, S1, S2 without murmur, rub or gallop. ABDOMEN: Soft, nontender, normoactive bowel sounds. EXTREMITIES: 2+ pulses, warm, well-perfused, no edema. LABS Laboratory Results - last 24 hr 06/23/18 06/23/18 06:00 06:00 WBC 7.9 RBC 3.31 L Hgb 10.2 L Hct 30.5 L MCV 92.2 MCH 30.9 MCHC 33.5 RDW 14.2 Plt Count 199 D MPV 6.9 L Sodium 139 Potassium 3.5 Chloride 110 H Carbon Dioxide 19 L Anion Gap 9 BUN 5 L Creatinine 0.3 L Creat Clearance w eGFR > 60 Random Glucose 73 L Calcium 7.9 L Phosphorus 3.9 Magnesium 2.1 Total Bilirubin 0.4 AST 14 L ALT 19 Alkaline Phosphatase 127 H Total Protein 5.6 L Albumin 2.6 L HOSPITAL COURSE: Date of Admission:06/22/18 Date of Discharge: 06/23/18 Minutes to complete discharge: 30 Discharge Summary Reason For Visit: ELEVATED TROPONIN I LEVEL, PALPITATIONS, TACHYCARD Current Active Problems Elevated troponin (Acute) Palpitations (Acute) (Acute) Sinus tachycardia (Acute) Hospital Course: This is a 33 year old woman, at 35 weeks gestation, with a history of psoriasis who presented to the ED on 06/22/18 complaining of palpitations. Around 9:30 pm on 06/21/18, she suddenly became nauseous, diaphoretic, and SOB. She developed palpitations and chest tightness. She felt her pulse was around 200. Her symptoms resolved without intervention. When she arrived in the ED, she was noted to be in sinus tachycardia. Troponin was 0.18, D-dimer 2161. EKG showed sinus tachycardia with no acute changes. Chest CTA showed no evidence of PE. Venous dopplers showed no evidence of DVT in her legs. She was seen by Dr. Stone and Dr. Dela Cruz. She was placed in observation on telemetry. Repeat troponin was 0.08. Echocardiogram showed normal LV with EF 65%, trace MR, trace TR. It was thought that her symptoms were secondary to an episode of PSVT. Lopressor was recommended by cardiology however she was concerned about taking the medication while and wanted to discuss it with her Peanut Separator. Throughout the stay, her rhythm was sinus and sinus tachycardia. She ambulated without difficulty and had no symptoms while in the hospital. She is being discharged on 06/23/18. She is being given a prescription for Lopressor 12.5 mg twice a day, which she will discuss with her Peanut Separator. She is advised to follow up with Dr. Stone to discuss referral to an corn cutter for loop recorder. Condition: Stable - Instructions Diet, Activity, Other Instructions: You were admitted to [facility] [place] on June 22 for palpitations and heart rate of 200. You were found to have sinus tachycardia. Chest CT showed no evidence of pulmonary embolus, and dopplers of your legs showed no evidence of clots. Echocardiogram was unremarkable. It was thought htat your symptoms were from an episode of SVT. You were seen by a childhood teacher , Dr. Stone. You were given the options of taking metoprolol to control your heart rate, carotid massage to break SVT if symptoms recur, consultation with an corn cutter either as an inpatient at [facility] or as an outpatient for further work up including loop recorder. You preferred not to start metoprolol until you consult with your Peanut Separator. While in the hospital, your heart rhythm remained sinus and sinus tachycardia with heart rate from 80s to 120. You are being discharged on June 23. You may resume our usual diet and usual activity. Please return to the ER if you have any further symptoms - chest pain, palpitations, dizziness, shortness of breath. You are being given a prescription for Lopressor 25mg - take half a tablet twice a day. Please confer with your Peanut Separator this week regarding the safety of the medication. Please schedule a follow up appointment with Dr. Stone in the next 1-2 weeks. Referrals: Jose Stone MD [Staff Physician] - 2 Weeks Disposition: HOME - Home Medications Comprehensive Discharge Medication List: Ambulatory Orders Metoprolol Tartrate [Lopressor -] 12.5 mg PO BID #30 tablet 06/23/18 This patient is new to me today: No Emergency Visit: Yes ED Registration Date: 06/22/18 Care time: The patient presented to the Emergency Department on the above date and was hospitalized for further evaluation of their emergent condition. Critical Care patient: No - Discharge Referral Referred to [facility] Med [facility] No
== END 2018-06-23 18:00 | disposition home or self-care (01) ==
LOC: JER 22:50 → INTOOBSV 06-22 07:30 → UNDOADMOB 06-22 07:30 → JERBED 06-22 07:30 → J4S 06-23 02:50
PROVIDERS: ADMIT Internal Medicine; ATTEND Internal Medicine
PROC: 3E0337Z Introduction of Electrolytic and Water Balance Substance into Peripheral Vein, Percutaneous Approach (ICD-10-PCS; principal; 2018-06-22)
DX: O26.893 Other specified pregnancy related conditions, third trimester (principal); Z3A.35 35 weeks gestation of pregnancy; R00.2 Palpitations; R77.8 Other specified abnormalities of plasma proteins; R00.0 Tachycardia, unspecified
CPT/HCPCS: 36415; 71275-TC; 80053; 80061; 82550; 83721; 83735; 84100; 84443; 84484; 84702; 85025; 85027; 85379; 85610; 86850; 86900; 86901; 87086; 93005; 93010; 93306-TC; 93970-TC; 99285-25; G0378; J7030